=== PATIENT | female | born 1980 | race American Indian/Alaskan Native ===

== ENCOUNTER 2020-04-15 02:19 | Emergency (ER) | payer SELFPAY ==
[2020-04-15 02:35] VITALS: BP 135/81
--- NOTE | 2020-04-15 02:35 | Emergency Department Report ---
Blank Doc - Documentation Documentation: 39-year-old female presents to the emergency department with suspicion of preg caleb and the development of vaginal bleeding over the last 4-day associated with vague cramps. No dysuria no fevers chills or sweats This initial assessment/diagnostic orders/clinical plan/treatment(s) is/are subject to change based on patients health status, clinical progression and re- assessment by fellow clinical providers in the ED. Further treatment and workup at subsequent clinical providers discretion. Patient/guardian urged not to elope from the ED as their condition may be serious if not clinically assessed and managed. Initial orders include: Ultrasound if labs do indicate a
[2020-04-15 03:10] LABS: Bilirubin,Urine NEG (Negative); Blood,Urine NEG (Negative); Color,Urine Straw (Yellow); Mucus,Urine FEW /HPF; Protein,Urine <15 mg/dL mg/dL (Negative); RBC,Urine < 1.0 /HPF (0.0-6.0); Urobilinogen,Urine < 2.0 mg/dL (<2.0)
[2020-04-15 03:14] LABS: Basophils % (Auto) 0.5 % (0.0-1.8); Eosinophils # (Auto) 0.1 K/mm3 (0.0-0.4); Hematocrit 36.9 % (30.3-42.9); Hemoglobin 12.2 gm/dl (10.1-14.3); Lymphocytes # (Auto) 2.8 K/mm3 (1.2-5.4); Lymphocytes % (Auto) 38.4 % (13.4-35.0); Mean Corpuscular HGB Conc 33 % (30-34); Mean Corpuscular Volume 90 fl (79-97); Monocytes # (Auto) 0.5 K/mm3 (0.0-0.8); Monocytes % (Auto) 7.3 % (0.0-7.3); Platelet Count 286 K/mm3 (140-440); Red Cell Distribution Width 12.9 % (13.2-15.2)
[2020-04-15] MEDS ORDERED: ACETAMINOPHEN 325 MG TAB PO ONE (03:46)
--- NOTE | 2020-04-15 03:47 | Emergency Department Report ---
ED HPI - General Chief complaint: Vaginal Bleeding Stated complaint: ABD PAIN/8WKS PREG/BLEEDING Time Seen by Provider: 04/15/20 03:30 Source: patient Mode of arrival: Ambulatory Limitations: No Limitations - History of Present Illness Initial comments: 39-year-old female with a past medical history of sickle cell trait presents to the hospital complaining of a positive home test with LMP 02/03/2020 and vaginal spotting since yesterday with increased bleeding today. As per LMP patient is currently 10 weeks and 2 days . She developed spotting yesterday which has become more red and heavy today. She is still only used 1 pad today. She complains of suprapubic cramping pain is intermittent without aggravating alleviating factors. This is her fifth she has 3 living children with history of 1 miscarriage. She denies ectopic pregnancies or previous abortions. She has not yet initiated care - Related Data Allergies Allergy/AdvReac Type Severity Reaction Status Date / Time No Known Allergies Allergy Unverified 04/15/20 02:30 ED Review of Systems ROS: Stated complaint: ABD PAIN/8WKS PREG/BLEEDING Other details as noted in HPI Comment: All other systems reviewed and negative ED Past Medical Hx - Past Medical History Previous Medical History?: Yes Hx Sickle Cell Disease: Yes (Trait) - Surgical History Past Surgical History?: No - Social History Smoking Status: Never Smoker Substance Use Type: None ED Physical Exam - General Limitations: No Limitations - Other Other exam information: General: No acute distress Head: Atraumatic Eyes: normal appearance ENT: Moist mucous membranes Neck: Normal appearance, no midline tenderness Chest: Clear to auscultation bilaterally CV: Regular rate and rhythm Abdomen: Soft, normal bowel sounds, nontender, nondistended, no rebound or g uarding Back: Normal inspection Extremity: Normal inspection, full range of motion Neuro: Alert O x 3, no facial asymmetry, speech clear, no gross motor sensory deficit Psych: Appropriate behavior Skin: No rash ED Course Vital Signs 04/15/20 02:27 Temperature 97.9 F Pulse Rate 80 Respiratory 18 Rate Blood Pressure 135/81 O2 Sat by Pulse 98 Oximetry ED Medical Decision Making - Lab Data Result diagrams: 04/15/20 02:31 Lab Results 04/15/20 04/15/20 04/15/20 Range/Units 02:31 02:31 02:40 WBC 7.2 (4.5-11.0) K/mm3 RBC 4.10 (3.65-5.03) M/mm3 Hgb 12.2 (10.1-14.3) gm/dl Hct 36.9 (30.3-42.9) % MCV 90 (79-97) fl MCH 30 (28-32) pg MCHC 33 (30-34) % RDW 12.9 L (13.2-15.2) % Plt Count 286 (140-440) K/mm3 Lymph % (Auto) 38.4 H (13.4-35.0) % [place] % (Auto) 7.3 (0.0-7.3) % Eos % (Auto) 2.0 (0.0-4.3) % Baso % (Auto) 0.5 (0.0-1.8) % Lymph # (Auto) 2.8 (1.2-5.4) K/mm3 [place] # (Auto) 0.5 (0.0-0.8) K/mm3 Eos # (Auto) 0.1 (0.0-0.4) K/mm3 Baso # (Auto) 0.0 (0.0-0.1) K/mm3 Seg Neutrophils % 51.8 (40.0-70.0) % Seg Neutrophils # 3.7 (1.8-7.7) K/mm3 HCG, Quant 893.4 H (0-4) mIU/mL Urine Color Straw (Yellow) Urine Turbidity Clear (Clear) Urine pH 6.0 (5.0-7.0) Ur Specific [place] 1.012 (1.003-1.030) Urine Protein <15 mg/dl (Negative) mg/dL Urine Glucose (UA) Neg (Negative) mg/dL Urine Ketones Neg (Negative) mg/dL Urine Blood Neg (Negative) Urine Nitrite Neg (Negative) Urine Bilirubin Neg (Negative) Urine Urobilinogen < 2.0 (<2.0) mg/dL Ur Leukocyte Esterase Neg (Negative) Urine WBC (Auto) 1.0 (0.0-6.0) /HPF Urine RBC (Auto) < 1.0 (0.0-6.0) /HPF U Epithel Cells (Auto) 1.0 (0-13.0) /HPF Urine Mucus Few /HPF Blood Type 04/15/20 Range/Units 03:55 WBC (4.5-11.0) K/mm3 RBC (3.65-5.03) M/mm3 Hgb (10.1-14.3) gm/dl Hct (30.3-42.9) % MCV (79-97) fl MCH (28-32) pg MCHC (30-34) % RDW (13.2-15.2) % Plt Count (140-440) K/mm3 Lymph % (Auto) (13.4-35.0) % [place] % (Auto) (0.0-7.3) % Eos % (Auto) (0.0-4.3) % Baso % (Auto) (0.0-1.8) % Lymph # (Auto) (1.2-5.4) K/mm3 [place] # (Auto) (0.0-0.8) K/mm3 Eos # (Auto) (0.0-0.4) K/mm3 Baso # (Auto) (0.0-0.1) K/mm3 Seg Neutrophils % (40.0-70.0) % Seg Neutrophils # (1.8-7.7) K/mm3 HCG, Quant (0-4) mIU/mL Urine Color (Yellow) Urine Turbidity (Clear) Urine pH (5.0-7.0) Ur Specific [place] (1.003-1.030) Urine Protein (Negative) mg/dL Urine Glucose (UA) (Negative) mg/dL Urine Ketones (Negative) mg/dL Urine Blood (Negative) Urine Nitrite (Negative) Urine Bilirubin (Negative) Urine Urobilinogen (<2.0) mg/dL Ur Leukocyte Esterase (Negative) Urine WBC (Auto) (0.0-6.0) /HPF Urine RBC (Auto) (0.0-6.0) /HPF U Epithel Cells (Auto) (0-13.0) /HPF Urine Mucus /HPF Blood Type B POSITIVE - Radiology Data Radiology results: report reviewed Pelvic ultrasound: Probable intrauterine however viability cannot be confirmed. Patient is a small intrauterine endometrial fluid collection in the lower fundal region with size corresponding to gestational age of 5 weeks and 2 days. There is probably a double wall sign which is likely a gestational sac. No internal contents can be seen to confirm viability. No cardiac activity is detected. - Medical Decision Making 39-year-old female presents to the hospital with cramping and vaginal bleeding with positive test. hCG quant is 893 with a probable 5-week 2-day gestational sac seen on ultrasound. However, viability cannot be confirmed and patient will need close follow-up including trending of hCG quant to determine if she is having a miscarriage versus early IUP. Patient provided Tylenol for crampy abdominal pain. 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 Critical Care Time: No Critical care attestation.: If time is entered above; I have spent that time in minutes in the direct care of this critically ill patient, excluding procedure time. ED Disposition Clinical Impression: Threatened affecting intrauterine Disposition: DC- TO HOME OR SELFCARE Is pt being admited?: No Does the pt Need Aspirin: No Condition: Stable Instructions: Threatened Miscarriage Additional Instructions: Take Tylenol as needed for pain. Follow-up with your OB doctor or the OB doctor provided. Return if symptoms worsen as indicated by your discharge instructions. You have been provided a copy of your labs and ultrasound to assist with the outpatient follow-up Referrals: NOLA MILTON MD [Staff Physician] - 3-5 Days ([facility] [employer] doctor) Time of Disposition: 05:33
--- NOTE | 2020-04-15 05:15 | Ultrasound Report ---
PELVIC ULTRASOUND INDICATION: VAGINAL BLEEDING, + COMPARISON: None pertinent available TECHNIQUE: Transabdominal FINDINGS: Uterus measures 10 x 5.1 x 6.7 cm. Endometrial stripe measures 11 mm. A small intrauterine endometrial fluid collection is seen in the lower fundal region with size corresponding to a gestatio nal age of 5 weeks 2 days. This probably has a double wall sign and I believe is very likely a gestat ional sac. No internal contents are seen and I cannot confirm viability however. No cardiac activity was detected. Left ovary appears within normal limits. Right ovary is not visualized. No adnexal masses are seen. N o free fluid is noted. IMPRESSION: Probable intrauterine is seen though I cannot confirm viability. Close follow-u p is suggested. Signer Name: Richy Flores MD Signed: 04/15/2020 5:11 AM Workstation Name: [id number]
== END 2020-04-15 06:05 | disposition home or self-care (01) ==
LOC: ED 02:19
DX: O20.0 Threatened abortion (principal); Z3A.08 8 weeks gestation of pregnancy
CPT/HCPCS: 36415; 76801; 81001; 84702; 85025; 86900; 86901